=== PATIENT | female | born 1935 | race Caucasian/White ===

== ENCOUNTER → 2016-04-18 | Outpatient (CLI) | payer OTHER ==
[2016-04-18 17:36] LABS: BLOOD UREA NITROGEN 39 mg/dL (7-22); BUN/CREATININE RATIO 27.85 (6-20); CALCIUM 11.1 mg/dL (8.7-10.7); CHLORIDE 105 meq/L (98-112); CREATININE 1.4 mg/dL (0.50-1.20); GLUCOSE 89 mg/dL (78-110); POTASSIUM 4.4 meq/L (3.8-5.2); SODIUM 142 meq/L (135-145)
[2016-04-20 11:29] LABS: PARATHYROID HORMONE 35 pg/mL (15-65)
== END ==
LOC: MOB LAB 15:51
DX: E83.52 Hypercalcemia (principal); I10 Essential (primary) hypertension
CPT/HCPCS: 80048; 82306; 83970; 84443; 99213

== ENCOUNTER → 2016-07-11 | Outpatient (CLI) | payer OTHER ==
[2016-07-11 17:17] LABS: BILIRUBIN,URINE NEGATIVE (NEG); COLOR,URINE YELLOW; GLUCOSE, URINE (UA) NEGATIVE (NEG); NITRATE,URINE NEGATIVE (NEG); OCCULT BLOOD,URINE Trace-intact (NEG); PROTEIN,URINE NEGATIVE (NEG)
[2016-07-11 17:21] LABS: BASOPHILS # (AUTO) 0.05 10*3/UL; BASOPHILS % (AUTO) 0.7 % (0-1); EOSINOPHILS # (AUTO) 0.28 10*3/UL; EOSINOPHILS % (AUTO) 3.8 % (0-8); HEMATOCRIT 44.8 % (37.0-47.0); HEMOGLOBIN 14.6 g/dL (12.0-16.0); LYMPHOCYTES # (AUTO) 1.72 10*3/uL; MEAN CORPUSCULAR HEMOGLOBIN 28.9 PG (27-31); MEAN CORPUSCULAR HGB CONC 32.6 g/dL (33-37); MEAN CORPUSCULAR VOLUME 88.7 FL (81-99); MEAN PLATELET VOLUME 10.6 FL (7.4-12.2); MONOCYTES % (AUTO) 8.1 % (5-15); NEUTROPHILS # (AUTO) 4.73 10*3/UL; RED BLOOD COUNT 5.05 10^6/uL (4.20-5.40)
[2016-07-11 17:22] LABS: PLATELET MORPHOLOGY COMMENT NORMAL MORPHOLOGY (NORM); RBC MORPHOLOGY COMMENT NORMAL MORPHOLOGY (NORM); WBC MORPHOLOGY COMMENT NORMAL MORPHOLOGY (NORM)
[2016-07-11 17:27] LABS: BUN/CREATININE RATIO 30.9 (6-20); SERUM ALBUMIN 4.5 g/dL (3.5-4.8)
[2016-07-11 17:34] LABS: CLARITY,URINE CLEAR (CLEAR)
[2016-07-11 17:43] LABS: BACTERIA,URINE RARE; SQUAMOUS EPITHELIAL CELL,UR FEW; URINE SAMPLE TYPE CLEAN CATCH URINE; WBC,URINE 90-100
== END ==
LOC: MOB LAB 16:29
DX: N28.9 Disorder of kidney and ureter, unspecified (principal); E83.52 Hypercalcemia; E78.5 Hyperlipidemia, unspecified; I10 Essential (primary) hypertension; N39.0 Urinary tract infection, site not specified
CPT/HCPCS: 36415; 80053; 81001; 84100; 85025; 87077; 87088; 87186